=== PATIENT | male | born 1955 | race Caucasian/White ===

== ENCOUNTER 2023-07-26 23:35 | Emergency (ER) | payer OTHER, MEDICARE ==
[~2023-07-26] VITALS: Ht 182.9 cm; Wt 71.0 kg
[2023-07-26 23:44] VITALS: BP 112/73
[2023-07-26 23:45] VITALS: BP 107/72
[2023-07-27] VITALS (15 sets, daily range): BP systolic 88–119; BP diastolic 53–75
[2023-07-27 00:09] LABS: BASO% 0.7 % (0-3); EOS% 4.9 % (0-8); HEMATOCRIT 39.9 % (39.0-50.0); HEMOGLOBIN 12.7 g/dl (14.0-18.0); IMMATURE GRANULOCYTES 0.4 % (0.0-5.0); LYMPH% 16.4 % (15-41); MEAN CELL VOLUME 66.2 fL CALC (80.0-100.0); MEAN CORPUSCULAR HGB 21.1 pG CALC (26.0-32.0); MEAN CORPUSCULAR HGB CONC 31.8 g/dL CAL (32.0-36.0); MONO% 6.7 % (2-13); NEUT# 6.43 thou/uL (1.82-7.42); NEUT% 70.9 % (42-76); RED BLOOD COUNT 6.03 mill/uL (4.70-6.10)
[2023-07-27 00:24] LABS: ALBUMIN 4.2 g/dL (3.2-5.0); ALKALINE PHOSPHATASE 62 u/l (38-126); ANION GAP 14 (6-22 (CALC)); BILIRUBIN, TOTAL 1.2 mg/dL (0.2-1.3); BUN 15 mg/dL (8-23); BUN/CREATININE RATIO 17 (12-20 (CALC)); CARBON DIOXIDE 24 mmol/l (22-30); CHLORIDE 106 mmol/l (95-108); CREATININE 0.9 mg/dL (0.7-1.3); ETHYL ALCOHOL 123 mg/dl (0-30); GFR FOR AFR.AMER. > 60 ML/MIN (>=60 (CALC)); GFR OTHER RACES > 60 ML/MIN (>=60 (CALC)); POTASSIUM 3.7 mmol/l (3.5-5.1); SGOT/AST 41 u/l (19-48); SODIUM 140 mmol/l (137-146); TOTAL PROTEIN 7.3 g/dL (6.3-8.2)
[2023-07-27 00:44] LABS: ACT PARTIAL THROMBO TIME 24.7 SECONDS (20.0-32.5); INTERNATIONAL NORMALIZED RATIO 1.1 RATIO (0.7-1.3); PROTHROMBIN TIME 10.4 SECONDS (9.0-12.5)
== END 2023-07-27 03:10 | disposition home or self-care (01) | DRG 605 ==
LOC: ED 23:35
PROVIDERS: Family Medicine
DX: S30.1XXA Contusion of abdominal wall, initial encounter (principal); V48.5XXA Car driver injured in noncollision transport accident in traffic accident, initial encounter; F10.129 Alcohol abuse with intoxication, unspecified; Y90.6 Blood alcohol level of 120-199 mg/100 ml; F17.210 Nicotine dependence, cigarettes, uncomplicated
CPT/HCPCS: Q9967